=== PATIENT | female | born 1970 | race African-American/Black ===

== ENCOUNTER 2017-08-12 21:36 | Observation (INO) ==
[2017-08-12] MEDS ORDERED: NITROGLYCERIN 2% OINT 1 INCH/GM PACK TOP STA (22:17)
[2017-08-12] MEDS ORDERED: ASPIRIN 325 MG TABLET PO STA (22:17)
[2017-08-12] MEDS ORDERED: methylPREDNISolone SOD SUC 125 MG/2 ML VIAL IV STA (22:17)
[2017-08-12] MEDS ORDERED: ONDANSETRON 4 MG/2 ML VIAL IV STA (22:17)
[2017-08-12] MEDS ORDERED: KETOROLAC 30 MG/1 ML VIAL IV STA (22:19)
[2017-08-12 22:42] LABS: Basophils % 0.3 % (0.0-0.8); Eosinophils # 0.1 10*3/uL (0.0-0.87); Hematocrit 34.3 VOL% (35.7-47.0); Hemoglobin 11.4 GM/DL (12.0-16.0); Immature Granulocytes % 0.1 %; Immature Granulocytes Absolute 0.01 #; Lymphocytes # 2.3 10*3/uL (1.4-4.0); Mean Corpuscular HGB Conc 33.2 GM/DL (32-36); Mean Corpuscular Hemoglobin 28 PG (27-34); Mean Corpuscular Volume 83.5 FL (87-102); Mean Platelet Volume 10.9 FL (9.6-12.0); Monocytes # 0.6 10*3/uL (0.11-0.8); Monocytes % 8.1 % (1.7-12.7); Neutrophils # 4.1 10*3/uL (1.4-7.4); Neutrophils % 57.5 % (38.7-73.9); Platelet Count 294 T/CUMM (130-400); Red Blood Count 4.11 MC/CUMM (3.8-5.5); Red Cell Distribution Width 14.9 % (9.3-17.3); White Blood Count 7.1 T/CUMM (4-12)
[2017-08-12] MEDS ORDERED: NITROGLYCERIN 2% OINT 1 INCH/GM PACK TOP ONE (22:42)
[2017-08-12] MEDS ORDERED: ASPIRIN 325 MG TABLET ONE (22:42)
[2017-08-12] MEDS ORDERED: ONDANSETRON 4 MG/2 ML VIAL ONE (22:42)
[2017-08-12] MEDS ORDERED: methylPREDNISolone SOD SUC 125 MG/2 ML VIAL ONE (22:42)
[2017-08-12] MEDS ORDERED: KETOROLAC 30 MG/1 ML VIAL ONE (22:42)
[2017-08-12 22:49] LABS: Apearance,Urine Slightly Hazy (Clear); Bacteria,Urine Occasional /HPF (Few); Bilirubin,Urine Negative (Negative); Blood, Urine Negative (Negative); Glucose,Urine (UA) Negative (Negative); Ketones,Urine Negative (Negative); Mucus,Urine Occasional /LPF (Occasional); Nitrite,Urine Negative (Negative); Protein,Urine Negative; RBC,Urine 1 /HPF (0-4); Squamous Epithelial Cell,Urine Occasional /HPF (0-10); Urine Color Yellow (Yellow); Urine Specific Gravity 1.013 (1.001-1.035); Urine Urobilinogen < 2.0 EU/DL (0.2-1.0); WBC,Urine 2 /HPF (0-6)
[2017-08-12 23:09] LABS: Alanine Aminotransferase 21 U/L (13-56); Albumin 3.6 G/DL (3.4-5.0); Alkaline Phosphatase 96 U/L (45-117); Aspartate Amino Transferase 16 U/L (0-37); Bilirubin,Total < 0.39 MG/DL (0.2-1.0); Blood Urea Nitrogen 10 MG/DL (7-18); Calcium 9.3 MG/DL (8.5-10.1); Glucose 101 MG/DL (74-106); Magnesium 1.9 MG/DL (1.8-2.4); Potassium 3.9 MMOL/L (3.5-5.1); Sodium 136 MMOL/L (136-145); Total Protein 7.6 G/DL (6.4-8.3); Troponin I Only < 0.015 NG/ML (0.00-0.045)
[2017-08-12 23:13] LABS: Barbiturates Screen,Urine Negative (Negative); Benzodiazepines Screen,Urine Negative (Negative); Cannabinoid Screen,Urine Negative (Negative); Opiate Screen,Urine Negative (Negative); Phencyclidine Screen,Urine Negative (Negative)
[2017-08-12] MEDS ORDERED: ENOXAPARIN 100 MG/ML SYRINGE SUBCUT STA (23:27)
[2017-08-12] MEDS ORDERED: ENOXAPARIN 120 MG/0.8 ML SYRINGE SUBCUT ONE (23:45)
[2017-08-13] MEDS ORDERED: SODIUM CHLORIDE 0.9% 1,000 ML IV SCH (02:09)
[2017-08-13] MEDS ORDERED: valACYclovir 500 MG TABLET PO PRN (02:09)
[2017-08-13] MEDS ORDERED: LORazepam 1 MG TABLET PO PRN (02:09)
[2017-08-13] MEDS ORDERED: ONDANSETRON 4 MG/2 ML VIAL IV PRN (02:09)
[2017-08-13] MEDS ORDERED: SIMETHICONE CHEW 125 MG TABLET PO PRN (03:29)
[2017-08-13 05:29] LABS: Basophils % 0.1 % (0.0-0.8); Hematocrit 32.5 VOL% (35.7-47.0); Hemoglobin 11.1 GM/DL (12.0-16.0); Immature Granulocytes % 0.3 %; Immature Granulocytes Absolute 0.02 #; Lymphocytes # 0.8 10*3/uL (1.4-4.0); Lymphocytes % 11.1 % (21.3-54.2); Mean Corpuscular HGB Conc 34.2 GM/DL (32-36); Mean Corpuscular Hemoglobin 28 PG (27-34); Mean Corpuscular Volume 82.7 FL (87-102); Mean Platelet Volume 11.2 FL (9.6-12.0); Monocytes # 0.1 10*3/uL (0.11-0.8); Monocytes % 0.8 % (1.7-12.7); Neutrophils # 6.5 10*3/uL (1.4-7.4); Neutrophils % 87.7 % (38.7-73.9); Platelet Count 288 T/CUMM (130-400); Red Blood Count 3.93 MC/CUMM (3.8-5.5); Red Cell Distribution Width 14.7 % (9.3-17.3); White Blood Count 7.4 T/CUMM (4-12)
[2017-08-13] MEDS: NITROGLYCERIN 2% OINT 1 INCH/GM PACK TOP SCH ×2 (06:17→15:03)
[2017-08-13 06:29] LABS: Alanine Aminotransferase 19 U/L (13-56); Albumin 3.5 G/DL (3.4-5.0); Alkaline Phosphatase 94 U/L (45-117); Aspartate Amino Transferase 13 U/L (0-37); Bilirubin,Total < 0.39 MG/DL (0.2-1.0); Blood Urea Nitrogen 13 MG/DL (7-18); Calcium 9.1 MG/DL (8.5-10.1); Cholesterol 291 MG/DL (50-200); Glucose 161 MG/DL (74-106); HDL Cholesterol 89 MG/DL (40-60); Magnesium 2.1 MG/DL (1.8-2.4); Potassium 4.8 MMOL/L (3.5-5.1); Risk Ratio 3.27; Sodium 136 MMOL/L (136-145); Thyroid Stimulating Hormone 0.574 uIU/ml (0.358-3.74); Total Protein 7.5 G/DL (6.4-8.3); Triglycerides 32 MG/DL (2-150); VLDL CHOLESTEROL 6.4 MG/DL
[2017-08-13 06:35] LABS: Troponin I Only < 0.015 NG/ML (0.00-0.045)
[2017-08-13] MEDS ORDERED: ASPIRIN EC 81 MG TABLET PO SCH (09:00)
[2017-08-13] MEDS ORDERED: ENOXAPARIN 40 MG/0.4 ML SYRINGE SUBCUT SCH (09:00)
[2017-08-13] MEDS ORDERED: METOPROLOL TARTRATE 25 MG TABLET PO SCH (09:00)
[2017-08-13] MEDS ORDERED: PANTOPRAZOLE 40 MG TABLET PO SCH (09:00)
[2017-08-13] MEDS ORDERED: TRIAMTERENE/HCTZ 37.5-25 MG TABLET PO SCH (09:00)
[2017-08-13] MEDS ORDERED: buPROPion SR 150 MG TABLET PO SCH (09:00)
[2017-08-13] MEDS ORDERED: OXcarbazepine 300 MG TABLET PO SCH (09:00)
[2017-08-13 10:27] LABS: Troponin I Only < 0.015 NG/ML (0.00-0.045)
[2017-08-13] MEDS ORDERED: ENOXAPARIN 120 MG/0.8 ML SYRINGE SUBCUT SCH (11:00)
[2017-08-13 12:10] VITALS: BP 138/63
[2017-08-13 13:17] LABS: Troponin I Only < 0.015 NG/ML (0.00-0.045)
[2017-08-13] MEDS ORDERED: ATORVASTATIN 40 MG TABLET PO SCH (21:00)
== END 2017-08-13 18:10 | disposition home or self-care (01) ==
LOC: N.ED 21:36 → SUATTDRO 08-13 01:40 → N.EDINP 08-13 01:40 → INTOOBSV 08-13 01:40 → N.TELES 08-13 02:08
PROVIDERS: ADMIT Internal Medicine Infectious Disease; ATTEND Hospitalist